=== PATIENT | male | born 1945 | race Caucasian/White ===

== ENCOUNTER 2022-01-21 15:06 | Outpatient (CLI) | payer MEDICARE, SELFPAY ==
--- NOTE | ~2022-01-21 | US_ITS ---
EXAMINATION: US art doppler w press LE BI DATE: 01/21/2022 16:46 INDICATION: Peripheral vascular disease. TECHNIQUE: Segmental pressures and plethysmographic and Doppler waveforms of the brachial and lower e xtremity arteries were obtained. COMPARISON: None. FINDINGS: Right and left brachial artery pressures of 131 mm Hg and 148 mm Hg, respectively, are concordant (no rmal difference <= 30 mmHg). The left high thigh pressure index is 1.40 (normal > 1.2). The right hig h thigh pressure index was unable to be obtained due to inability to occlude the vessel. The right ankle-brachial index (TANYA) is 1.15 (normal >= 0.9-1). The right great toe-brachial index (T BI) is 0.52 (normal >= 0.6-0.8). The right lower extremity segmental pressure gradients are normal (n ormal gradients <= 20-30 mmHg between adjacent levels on the same leg or the same levels on the two l egs). Arterial waveforms are triphasic with brisk systolic upstrokes throughout the arteries of the r ight lower limb. The left TANYA is 1.04. The left TBI is 0.60. The left lower extremity segmental pressure gradients are borderline increased between the left dorsalis pedis artery and both the left [id number] poplite al artery and the contralateral right dorsalis pedis artery. Arterial waveforms are triphasic at the left common femoral, superficial femoral and posterior tibial arteries and biphasic at the left popli teal and dorsalis pedis arteries with brisk systolic upstrokes throughout. IMPRESSION: 1. Mild arterial occlusive disease to the bilateral lower limbs with normal bilateral ABIs but mildly decreased right TBI and borderline decreased left TBI. Reviewed, dictated and finalized at location A. IMPRESSION: 1. Mild arterial occlusive disease to the bilateral lower limbs with normal ruby ateral ABIs but mildly decreased right TBI and borderline decreased left TBI.
== END 2022-01-21 15:07 | disposition home or self-care (01) ==
PROVIDERS: PCP Internal Medicine; Visit Provider Internal Medicine
DX: I73.9 Peripheral vascular disease, unspecified (principal)
CPT/HCPCS: 93923

== ENCOUNTER 2022-03-03 01:00 | Day surgery (SDC) | payer MEDICARE, SELFPAY ==
[2022-02-14 15:16] VITALS: BMI 35.2
[2022-03-03 11:43] VITALS: BP 176/79; PULSE 80; RESP 19; TEMP 36.4; O2SAT 97
--- NOTE | 2022-03-03 11:55 | PM.HPGS ---
History of Present Illness History of Present Illness Consent: Risks, benefits, and alternatives have been discussed and questions answered. Patient agrees to proceed with procedure. Chief complaint: neoplasm screening Narrative: Dionicio Shafer Jr. is a 76 year old male referred for colon cancer screening. Review of Systems Review of Systems: All systems reviewed & are unremarkable except as noted in HPI and below PMFSH Family History Family History Father Asthma Social History Social History Smoking packs per day: 2 Smoking cigarettes per day: 40.0 Years smoked: 50 Smoking pack-years: 100.00 Smoking status: Former smoker Tobacco type: cigarettes Alcohol intake: never Substance use type: does not use Living arrangements: alone Meds Home Medications and Allergies Home Medications Medication Instructions Recorded Confirmed Type albuterol sulfate 90 mcg/actuation 1 inh inhalation DAILY PRN 02/14/22 02/15/22 History aerosol inhaler Shortness Of Breath amlodipine 10 mg-benazepril 20 mg 1 cap PO DAILY 02/14/22 02/15/22 History capsule aspirin 81 mg tablet,delayed 81 mg PO DAILY 02/14/22 02/15/22 History release ezetimibe 10 mg tablet 10 mg PO DAILY 02/14/22 02/15/22 History glipizide 5 mg tablet 5 mg PO DAILY 02/14/22 02/15/22 History isosorbide mononitrate 20 mg tablet 20 mg PO DAILY 02/14/22 02/15/22 History lansoprazole 30 mg capsule,delayed 30 mg PO DAILY 02/14/22 02/15/22 History release metoprolol tartrate 50 mg tablet 50 mg PO DAILY 02/14/22 02/15/22 History montelukast 10 mg tablet 10 mg PO DAILY 02/14/22 02/15/22 History tamsulosin 0.4 mg capsule 0.4 mg PO DAILY 02/14/22 02/15/22 History umeclidinium 62.5 mcg-vilanterol 1 inh inhalation DAILY 02/14/22 02/15/22 History 25 mcg/actuation powdr for inhalation (Anoro Ellipta) Allergies Allergy/AdvReac Type Severity Reaction Status Date / Time No Known Allergies Allergy Verified 03/03/22 11:42 Vital Signs Vital Signs - 24 hr 03/03/22 11:43 Temperature 36.4 C L Pulse Rate 80 Respiratory Rate 19 Blood Pressure 176/79 H Pulse Oximetry 97 Oxygen Delivery Room Air Exam Resp: Auscultation: clear to auscultation bilaterally Cardio: Rate: regular rate Rhythm: regular rhythm GI: GI Palp: Yes Soft to palpation and No Tenderness to palpation present (GI) Assessment and Plan Assessment and plan (1) Colon cancer screening: Code(s): Z12.11 - Encounter for screening for malignant neoplasm of colon Status: Acute Assessment and Plan: Colonoscopy with possible biopsy or polypectomy or cautery or injection of substances.
[2022-03-03] MEDS: LACTATED RINGERS 1,000 ML 150 ML IV CONT (11:56)
--- NOTE | 2022-03-03 12:02 | P.PNAN_ITS ---
Anes - Initial Pre Proc Eval Procedure: Operation Date: 03/03/22 13:00 Proposed Procedures p Screening Colonoscopy - Yobany Mims MD Date/Time: 03/03/22 12:02 Surgeon: Yobany Mims MD Pre Op Diagnosis: neoplasm screening Patient Data Age: 76 Gender: M Height: 1.73 m Weight: 104.8 kg Last Vital Signs Temp 97.5 F L 03/03/22 11:43 Pulse 80 03/03/22 11:43 Resp 19 03/03/22 11:43 BP 176/79 H 03/03/22 11:43 Pulse Ox 97 03/03/22 11:43 O2 Del Method Room Air 03/03/22 11:43 Allergies Allergy/AdvReac Type Severity Reaction Status Date / Time No Known Allergies Allergy Verified 03/03/22 11:42 Home Medications Medication Instructions Recorded Confirmed Type albuterol sulfate 90 mcg/actuation 1 inh inhalation DAILY PRN 02/14/22 02/15/22 History aerosol inhaler Shortness Of Breath amlodipine 10 mg-benazepril 20 mg 1 cap PO DAILY 02/14/22 02/15/22 History capsule aspirin 81 mg tablet,delayed 81 mg PO DAILY 02/14/22 02/15/22 History release ezetimibe 10 mg tablet 10 mg PO DAILY 02/14/22 02/15/22 History glipizide 5 mg tablet 5 mg PO DAILY 02/14/22 02/15/22 History isosorbide mononitrate 20 mg tablet 20 mg PO DAILY 02/14/22 02/15/22 History lansoprazole 30 mg capsule,delayed 30 mg PO DAILY 02/14/22 02/15/22 History release metoprolol tartrate 50 mg tablet 50 mg PO DAILY 02/14/22 02/15/22 History montelukast 10 mg tablet 10 mg PO DAILY 02/14/22 02/15/22 History tamsulosin 0.4 mg capsule 0.4 mg PO DAILY 02/14/22 02/15/22 History umeclidinium 62.5 mcg-vilanterol 1 inh inhalation DAILY 02/14/22 02/15/22 History 25 mcg/actuation powdr for inhalation (Anoro Ellipta) Patient hx anesthesia problems: none Family hx anesthesia problems: none Results Review: All pre-operative results and documents have been reviewed as part of the pre- operative evaluation. PMFSH Family History Family History Father Asthma Social History Social History Smoking packs per day: 2 Smoking cigarettes per day: 40.0 Years smoked: 50 Smoking pack-years: 100.00 Smoking status: Former smoker Tobacco type: cigarettes Alcohol intake: never Substance use type: does not use Living arrangements: alone Anes - Eval Final PreProcedure Day of Procedure 03/03/22 12:02 Patient weight: obese Heart: regular rate and rhythm Lungs: clear to auscultation Airway: Mallampati scale class II Neurological: alert and oriented Last oral intake: >/= 8 hours ASA classification: III Emergent: no Anesthetic plan: proceed Anesthesia type and monitoring: general GIVS and standard monitoring Results Review: All pre-operative results and documents have been reviewed as part of the pre- operative evaluation. Informed Consent: The patient's anesthetic plan and its attendant risks and benefits were discussed with the patient/family/POA. Questions were solicited and answers provided to the satisfaction of the patient/family/POA.
[2022-03-03 13:00] LABS: Glucose Point of Care 105 mg/dl (65-105)
[2022-03-03 13:25] VITALS: BP 126/69; PULSE 76; RESP 22; O2SAT 90
[2022-03-03 13:35] VITALS: BP 151/88; PULSE 67; RESP 17; O2SAT 94
[2022-03-03 13:45] VITALS: BP 166/92; PULSE 61; RESP 14; O2SAT 94
== END 2022-03-03 14:05 | disposition home or self-care (01) ==
PROVIDERS: PCP Internal Medicine; Visit Provider Internal Medicine Gastroenterology
PROC: 0DJD8ZZ Inspection of Lower Intestinal Tract, Via Natural or Artificial Opening Endoscopic (ICD-10-PCS; CPT 45378; principal; 2022-03-03 13:00)
DX: Z12.11 Encounter for screening for malignant neoplasm of colon (principal); D12.4 Benign neoplasm of descending colon; K62.1 Rectal polyp; K57.30 Diverticulosis of large intestine without perforation or abscess without bleeding; Z79.51 Long term (current) use of inhaled steroids; Z79.82 Long term (current) use of aspirin; Z79.84 Long term (current) use of oral hypoglycemic drugs; Z87.891 Personal history of nicotine dependence; E66.9 Obesity, unspecified; Z68.35 Body mass index [BMI] 35.0-35.9, adult
CPT/HCPCS: 45380; 45385; 82948; 88305; J2704; J7120

== ENCOUNTER 2023-12-31 14:14 | Emergency (ER) | payer MEDICARE, SELFPAY ==
[2023-12-31] VITALS (25 sets, daily range): BP systolic 128–155; BP diastolic 72–101; PULSE 60–78; RESP 13–22; TEMP 36.4–36.5; O2SAT 94–99
--- NOTE | ~2023-12-31 | XR_ITS ---
XR chest 2V DATE: 12/31/2023 14:49 INDICATION: Chest pain, left facial and arm numbness. Shortness of breath. TECHNIQUE: PA and lateral views COMPARISON: None FINDINGS: Borderline heart size. Aortic calcification and mild tortuosity. No hilar or mediastinal en largement. There is infiltrate and/or atelectasis of the lingula; cardiophrenic fat pad or scarring might simula te this appearance. Recommend clinical correlation. The lungs otherwise appear clear. No pleural effusion or pulmonary vascular congestion or pneumothorax. Degenerative spurring of the thoracic spine. IMPRESSION: Lingular infiltrate or atelectasis are suspected. Alternatively, cardiophrenic fat pad or scarring can simulate this appearance. Reviewed, dictated and finalized at location J. IMPRESSION: Lingular infiltrate or atelectasis are suspected. Alternatively, ca rdiophrenic fat pad or scarring can simulate this appearance.
--- NOTE | 2023-12-31 14:15 | ECG_ITS ---
Test Date: 2023-12-31 14:22:25 Measurements Intervals [place] Rate: 74 P: 139 IA: 175 QRS: 139 QRSD: 90 T: 152 QT: 362 QTc: 402 Interpretive Statements SINUS RHYTHM WITH OCCASIONAL VENTRICULAR PREMATURE COMPLEXES ARM LEADS REVERSED [INVERTED P AND QRS IN I] LOW VOLTAGE ABNORMAL ECG Electronically Signed On 01-01-2024 10:54:54 CDT by Nghia Bernal M.D.
[2023-12-31 14:43] LABS: Basophils Absolute Auto 0.1 K/mm3 (0.0-0.1); Basophils Percent Auto 0.9 % (0.2-1.2); Eosinophils Absolute Auto 0.3 K/mm3 (0-0.3); Eosinophils Percent Auto 4.4 % (0-4.4); Hematocrit 44.1 % (42.0-52.0); Hemoglobin 13.7 g/dL (14.0-18.0); Immature Granulocyte Absolute 0.02 K/mm3 (0.00-0.031); Immature Granulocyte Percent A 0.3 % (0-0.5); Lymphocytes Absolute Auto 1.39 K/mm3 (0.9-3.2); Lymphocytes Percent Auto 20.9 % (18.3-44.2); Mean Corpuscular HGB Conc 31.1 g/dl (32-36); Mean Corpuscular Hemoglobin 26.7 pg (26-34); Mean Platelet Volume 10.1 fl (7.4-10.4); Monocytes Absolute Auto 0.5 K/mm3 (0.1-0.6); Monocytes Percent Auto 7.2 % (2.6-8.5); Neutrophils Absolute Auto 4.4 K/mm3 (1.3-6.7); Neutrophils Percent Auto 66.3 % (45.5-73.1); Platelet Count Result 228 k/mm3 (150-375); Red Blood Count 5.13 M/mm3 (4.6-6.20); Red Cell Distribution Width 14.4 % (11.5-14.5); White Blood Count 6.6 K/mm3 (4.5-10.0)
[2023-12-31 14:49] LABS: Alanine Aminotransferase 29 U/L (6-50); Albumin Level 4.5 g/dL (3.5-5.1); Alkaline Phosphatase 55 U/L (38-126); Anion Gap 10 mmol/L (4-12); Aspartate Amino Transferase 33 U/L (17-59); Bilirubin,Total 0.4 mg/dL (0.2-1.3); Blood Urea Nitrogen 23 mg/dL (9-20); Calcium 9.4 mg/dL (8.4-10.2); Carbon Dioxide 24 mmol/L (22-30); Chloride 102 mmol/L (98-107); Estimated CRCL calculation 52 ml/min; Estimated Glomerular Filt Rate 58; Glucose 126 mg/dL (65-110); Lipase 88 U/L (23-300); Potassium 4.9 mmol/L (3.4-5.0); Sodium 136 mmol/L (137-145)
[2023-12-31 14:50] LABS: Partial Thromboplastin Time 26.3 Seconds (22.3-36.8); Prothrombin Time 13.1 Seconds (11.1-14.7)
[2023-12-31 15:00] LABS: Troponin I < 0.012 ng/mL (0.000-0.034)
--- NOTE | 2023-12-31 16:54 | ED.GENADULT ---
HPI - General Adult General Chief complaint: Chest Pain Stated complaint: SOB, CP, left facial numbness Time Seen by Provider: 12/31/23 14:55 History of Present Illness HPI narrative: Patient is a 78-year-old gentleman who presents emergency department with chief complaint of chest discomfort the patient reports for the last several days been having a feeling of indigestion reports today woke up having the sensation reports that he is did not feel well afterwards. The patient states the symptoms have resolved now. Patient denies fever denies cough reports that currently is not having any symptoms Related Data Home Medications Medication Instructions Recorded Confirmed albuterol sulfate 90 mcg/actuation 1 inh inhalation DAILY PRN 02/14/22 02/15/22 aerosol inhaler Shortness Of Breath amlodipine 10 mg-benazepril 20 mg 1 cap PO DAILY 02/14/22 02/15/22 capsule aspirin 81 mg tablet,delayed 81 mg PO DAILY 02/14/22 02/15/22 release ezetimibe 10 mg tablet 10 mg PO DAILY 02/14/22 02/15/22 glipizide 5 mg tablet 5 mg PO DAILY 02/14/22 02/15/22 isosorbide mononitrate 20 mg tablet 20 mg PO DAILY 02/14/22 02/15/22 lansoprazole 30 mg capsule,delayed 30 mg PO DAILY 02/14/22 02/15/22 release metoprolol tartrate 50 mg tablet 50 mg PO DAILY 02/14/22 02/15/22 montelukast 10 mg tablet 10 mg PO DAILY 02/14/22 02/15/22 tamsulosin 0.4 mg capsule 0.4 mg PO DAILY 02/14/22 02/15/22 umeclidinium 62.5 mcg-vilanterol 1 inh inhalation DAILY 02/14/22 02/15/22 25 mcg/actuation powdr for inhalation (Anoro Ellipta) Allergies Allergy/AdvReac Type Severity Reaction Status Date / Time No Known Allergies Allergy Verified 03/03/22 11:42 Review of Systems Review of Systems: A 10 system review of systems was completed on the patient and is negative except for what is stated in the HPI. Nursing and ancillary documentation was reviewed. PMFSH Family History Family History Father Asthma Social History Social History Smoking packs per day: 2 Smoking cigarettes per day: 40.0 Years smoked: 50 Smoking pack-years: 100.00 Smoking status: Former smoker Tobacco type: cigarettes Alcohol intake: never Substance use type: does not use Living arrangements: alone Exam Narrative: GENERAL: Well-appearing, well-nourished, and in no acute distress. HEAD: Normocephalic, atraumatic. EYES: PERRLA and EOMI. ENT: Nares clear, no rhinorrhea or epistaxis. Mucous membranes moist. NECK: Supple. CHEST: Clear to auscultation. No respiratory distress. HEART: Regular rate and rhythm. No murmur heard. Normal peripheral pulses. ABDOMEN: Soft, nontender, nondistended, normal active bowel sounds. EXTREMITIES: Normal range of motion. No edema. SKIN: Warm, dry, no rash. NEURO: No focal deficits. Alert and oriented x3. Moves all extremities equally no facial droop PSYCH: Normal mood and affect. Course Vital Signs Vital signs: Vital Signs Temperature 36.5 C 12/31/23 14:27 Pulse Rate 78 12/31/23 14:27 Respiratory Rate 17 12/31/23 14:27 Blood Pressure 146/101 H 12/31/23 14:27 Pulse Oximetry 97 12/31/23 14:27 Oxygen Delivery Room Air 12/31/23 14:27 Temperature 36.4 C 12/31/23 15:04 Pulse Rate 67 12/31/23 18:04 Respiratory Rate 17 12/31/23 18:04 Blood Pressure 151/86 H 12/31/23 18:04 Pulse Oximetry 98 12/31/23 18:04 Oxygen Delivery Room Air 12/31/23 15:04 Medical Decision Making [facility] Narrative Medical decision making narrative: Differential diagnosis includes gastroesophageal reflux disease, ACS, unstable angina, atypical chest pain EKG showed sinus rhythm with occasional PVCs, no ST elevation or ST depression Laboratory studies were obtained showed a normal CBC normal CMP troponin was 0 hour and 3 hour. Chest x-ray showed a lingular atelectasis versus infi
--- NOTE | 2023-12-31 17:23 | ECG_ITS ---
Test Date: 2023-12-31 17:29:40 Measurements Intervals [employer] Rate: 61 P: -54 ID: 163 QRS: 38 QRSD: 94 T: 29 QT: 404 QTc: 410 Interpretive Statements ECTOPIC ATRIAL RHYTHM ABNORMAL ECG Compared to ECG 12/31/2023 14:22:25 Ectopic atrial rhythm now present Sinus rhythm no longer present Ventricular premature complex(es) no longer present Electronically Signed On 01-01-2024 10:55:51 CDT by Nghia Bernal M.D.
[2023-12-31 17:39] LABS: Troponin I < 0.012 ng/mL (0.000-0.034)
== END 2023-12-31 18:20 | disposition home or self-care (01) ==
PROVIDERS: Emergency Medicine; Emergency Provider Emergency Medicine; PCP Internal Medicine
DX: R07.89 Other chest pain (principal); J44.9 Chronic obstructive pulmonary disease, unspecified; E11.9 Type 2 diabetes mellitus without complications; Z87.891 Personal history of nicotine dependence; Z79.82 Long term (current) use of aspirin; Z79.84 Long term (current) use of oral hypoglycemic drugs; I49.3 Ventricular premature depolarization
CPT/HCPCS: 36415; 71046; 80053; 83690; 84484; 85025; 85610; 85730; 93005; 99284

== ENCOUNTER 2024-12-25 11:31 | Outpatient (CLI) | payer MEDICARE, SELFPAY ==
--- NOTE | ~2024-12-25 | XR_ITS ---
EXAMINATION: XR chest 2V 12/25/2024 11:48 INDICATION: Productive cough for 2 weeks PROCEDURE: 2 view chest COMPARISON: 12/31/2023 FINDINGS: There is right upper lobe pneumonia. The cardiomediastinal silhouette is within normal limi ts. There are no pleural effusions. There is no pneumothorax suspected. IMPRESSION: 1: Right upper lobe pneumonia. Reviewed, dictated and finalized at location A.
--- OUTSIDE RECORDS SUMMARY | 2024-12-25 11:36 | XMS_ITS | Clinical Summary ---
Author Organization [facility] Address [facility] [place] [address] Care Team Providers Care Tractor Mechanic Name Role Phone Gabriele Hills MD Primary Care Provider Social History Tobacco Use Types Packs/Day Years Used Date Smoking Tobacco: Never Assessed Sex and Gender Information Value Date Recorded Sex Assigned at Not on file Legal Sex Male 10:09 AM CDT Gender Identity Not on file Sexual Orientation Not on file Plan of Treatment Health Maintenance Due Date Last Done Comments DTaP, Tdap and Td Vaccines ( 1 - Tdap) 10/22/1963 Pneumococcal Vaccine: 50+ Ye ars (1 of 1 - PCV) 1994 Zoster Vaccines (1 of 2) 1994 Annual Medicare Wellness Visit 2009 RSV Immunization or 60+ Years (1 - 1-dose 75+ series) 10/22/2019 COVID-19 Vaccine (2023-2 5 season) 2024 Meningococcal B Vaccine Aged Out No l onger eligible based on patient's age to complete this topic Meningococcal Vaccine Aged Out No maximo elmer eligible based on patient's age to complete this topic RSV Immunizations Under 20 Months Aged Out No longer eligible based on patient's age to complete this topic Insurance [facility] Care Teams Tractor Mechanic Relationship Specialty Start Date End Date Gabriele Hills MD [address] [place] [address] PCP - General INTERNAL MEDICINE 11/08/21
--- OUTSIDE RECORDS SUMMARY | 2024-12-25 11:36 | XMS_ITS | Clinical Summary ---
Author Organization [facility] Address [address] [place] [address] Phone Care Team Providers Care Tile Applicator Name Role Phone Aj Douglas MD Primary Care Provider [phone] Allergies No known active allergies Medications tamsulosin (FLOMAX) 0.4 mg capsule Take 0.4 mg by mouth daily. Active ropivacaine, PF, (NAROPIN) 5 mg/mL (0.5 %) Solution 3 mg. Active nitroglycerin (NITROSTAT) 0.4 mg Tablet, Sublingual Place 0.4 mg under tongue 1 time daily as needed. For chest pain Active montelukast (SINGULAIR) 10 mg tablet Take 10 mg by mouth daily. Active metoprolol tartrate (LOPRESSOR) 50 mg tablet Take 50 mg by mouth daily. Active lansoprazole (PREVACID) 30 mg Capsule, Delayed Release(E.C.) Take 30 mg by mouth daily. Active Accu-Chek Fastclix Lancet Drum USE TWICE DAILY DIRECTED 2 Active isosorbide mononitrate (ISMO) 20 mg tablet Take 20 mg by mouth daily. Active glipiZIDE (GLUCOTROL) 5 mg tablet Take 5 mg by mouth daily. Active fluticasone propionate (FLONASE) 50 mcg/spray [place], Suspension nasal inhaler fluticasone propionate 50 mcg/actuation nasal spray,suspensio n Active ezetimibe (ZETIA) 10 mg tablet Take 10 mg by mouth daily. Active Accu-Chek Guide Me Glucose Mtr 2 times daily. 2 Active Accu-Chek Guide test strips Strip 2 times daily. 2 Active aspirin (ECOTRIN EC) 81 mg Tablet, Delayed Release (E.C.) Take 81 mg by mouth daily. Active amLODIPine-benaz epril (LOTREL) 10-40 mg capsule Take 1 Capsule by mouth daily. Active albuterol sulfate 90 mcg/Actuation inhaler Take 1 Puff by inhalation 3 times daily after meals. For SOB Active apixaban (Eliquis) 5 mg tablet TAKE 1 TABLET BY MOUTH TWICE A DAY 60 Tablet 3 Active fluticasone-umec lidinium-vilante rol (Trelegy Ellipta) 100-62.5-25 mcg Disk with Device INHALE 1 PUFF DAILY RINSE MOUTH WEL AFTER USE 60 Each 11 4 Active Active Problems No known active problems Encounters Date Type Department Care Team Description 12/18/2024 External Device Data [facility]STRACTION Provider, Abstract 11/27/2024 External Device Data [facility]STRA[facility] Provider, Abstract 11/26/2024 External Device Data [facility]CTION Provider, Abstract 10/29/2024 External Device Data [facility]STRACTION Provider, Abstract 10/03/2024 External Device Data [facility]STRACTION Provider, Abstract 10/02/2024 External Device Data [facility]STRACTION Provider, Abstract 10/01/2024 External Device Data [facility]STRACTION Provider, Abstract from Last 3 Months Social History Tobacco Use Types Packs/Day Years Used Date Smoking Tobacco: Former Cigarettes Q uit: 2017 Smokeless Tobacco: Never Tobacco Cessation:Counseling Given: Not Answered Sex and Gender Information Value Date Recorded Sex Assigned at Not on file Legal Sex Male 11:03 PM CDT Gender Identity Not on file Sexual Orientation Not on file Last Filed Vital Signs Vital Sign Reading Time Taken Comments Blood Pressure 136/84 04/03/2024 1:08 PM DOCK BOSS Pulse 62 04/03/2024 1:08 PM DOCK BOSS Temperature - - Respiratory Rate - - Oxygen Saturation 93% 04/03/2024 1:08 PM DOCK BOSS Inhaled Oxygen Concentration - - Weight 106.2 kg (234 lb 3.2 oz) 04/03/2024 1:08 PM DOCK BOSS Height 172.7 cm (5' 8) 04/03/2024 1:08 PM DOCK BOSS Body Mass Index 35.61 04/03/2024 1:08 PM DOCK BOSS Plan of Treatment Upcoming Encounters Date Type Department Care Team (Late st Contact Info) Description 04/03/2025 1:45 PM DOCK BOSS Office Visit [facility] Pulmonology [facility] [address] [facility] [address] [place] [address] Arcadio Mccallum MD [address] [facility] [address] [place] [address] Health Maintenance Due Date Last Done Comments DIABETES ANNUAL FOOT EXAM 1962 DIABETES ANNUAL RETINAL EXAM 1962 DIABETES MICROALBUMIN ANNUAL SCREEN 1962 LDL CHOLESTEROL ANNUAL 1962 DTAP/TDAP/TD VACCINES (1 - Tdap) 10/22/1963 PNEUMOCOCCAL VACCINE 50+ YEARS (1 of 2 - PCV) 10/21/18 64 ZOSTER VACCINE (1 of 2) 1994 RSV VACCINE (60+ or ) (1 - 1-dose 75+ series) 10/22/2019 DIABETES HBA1C Q 6 MONTHS 05/03/2022 11/01/2021 INFLUENZA VACCINE (#1) 2024 Insurance [employer] O MCR Care Teams Tile Applicator Relationship Specialty Start Date End Date Aj Douglas MD [address] [facility] [address] [place] [id number] PCP - General Internal Medicine 06/10/22
--- OUTSIDE RECORDS SUMMARY | 2024-12-25 11:36 | XMS_ITS | Continuity of Care Document ---
Author Organization [facility] Address [address] [place] [address] Phone Care Team Providers Care Evidence Custodian Name Role Phone Bishop Calderon MD Unavailable [...] Encounter Office/outpat ient visit,est, low [facility], [address], [id number], [place] [phone] [facility] JOINT PAIN-HANDJOIN T PAIN-HANDHAND INJURY NOS 4 Yumiko Alas. [address] [facility] [address], [place], [place], [id number] , [place]. tel: [phone] Office/outpat ient visit,est, mod [facility], [address] [address], [place], [place], [id number], [place] [phone] [facility] HAND INJURY NOS 4 Yumiko Alas. [address] [address], [place], [place], [id number] , [place]. tel: [phone] Office consultation, moderate [facility] [address] [facility], [address], [id number], [place] tel:[phone] [facility] Acute Pain Due To TraumaJOINT PAIN-HANDLOC PRIM OSTEOARTH-HECTOR DHAND INJURY NOS 4 Yumiko Alas. [address] [address], [place], [place], [id number] , [place]. tel: [phone] Family History Family Member Type Diagnosis Age [...]
--- OUTSIDE RECORDS SUMMARY | 2024-12-25 11:36 | XMS_ITS | Encounter Summary ---
Author Organization [facility] Address [address] [place] [address] Care Team Providers Care Mainspring Strip Gauger Name Role Phone Mary Croft GULSHAN-ROTOFORMER BACKTENDER Unavailable Encounter Details Date Type Department Care Team (Late st Contact Info) Description 07/16/2024 Lab Requisition [facility] - DermPath Lab [address] [facility], [facility] [place] [address] Mary Ann Valero MD [address] [facility] [address] [place] [address] Social History Tobacco Use Types Packs/Day Years Used Date Smoking Tobacco: Never Assessed Sex and Gender Information Value Date Recorded Sex Assigned at Not on file Legal Sex Male 11:17 AM CDT Gender Identity Not on file Sexual Orientation Not on file documented as of this encounter Plan of Treatment Not on file documented as of this encounter Procedures Procedure Name Priority Date/Time Associated Diagnosis Comments DERMATOPATHOLOGY Routine 07/16/2024 11:0 5 AM HAT CLEANER documented in this encounter Results * DERMATOPATHOLOGY (07/16/2024 11:05 AM HAT CLEANER) Case Report Dermatopathology Report Case: [id number] Authorizing Provider: Mary Ann Valero MD Collected: 07/16/2024 11:05 AM Ordering Location: [facility] - Received: 07/17/2024 06:41 AM DermPath Lab Pathologist: Nyla Croft MD Specimen: Skin, left hand 2:19 PM HAT CLEANER DERMATOPATHOLOGY LABORATORY Final Diagnosis Specimen A. SKIN, left hand: HYPERPLASTIC (HYPERTROPHIC) ACTINIC KERATOSIS, LICHENOID (L57.0) (see microscopic description) 2:19 PM HAT CLEANER DERMATOPATHOLOGY LABORATORY at 1419 HAT CLEANER Clinical History R/O SCC; Non-Healing 2:19 PM [facility] DERMATOPATHOLOGY LABORATORY Gross Description Specimen A: Received is one formalin filled container labeled with the patient's name and designated left hand. The specimen consists of a shave biopsy measuring 6x6x1 mm. Jar 0. 2:19 PM [facility] DERMATOPATHOLOGY LABORATORY Microscopic Description Specimen A. SKIN, left hand: There is hyperkeratosis alternating with parakeratosis. There is epidermal hyperplasia with disorderly maturation of keratinocytes with nuclear pleomorphism confined to the lower half of the epidermis. The dermis shows a band-like, chronic inflammatory infiltrate with occasional apoptotic keratinocytes and some basal vacuolar alteration. 2:19 PM [facility] DERMATOPATHOLOGY LABORATORY Disclaimer An external and internal positive and negative controls are appropriate for the histochemical, immunohistochemical and immunofluorescence stain(s) in this case (if any), except where stated explicitly. The performance characteristics of the stain(s) cited in this report were developed and its performance characteristic determined by the Dermatopathology Laboratory at [facility], directed by Dr. Misa Ospina. These tests need not be, and therefore are not, approved by the [place] Food and Drug Administration. The tests are used for clinical purposes. Billing Codes Specimen Charges Stain Charges 42722 1 2:19 PM [facility] DERMATOPATHOLOGY LABORATORY Embedded Images 2:19 PM [facility] DERMATOPATHOLOGY LABORATORY Pathology/Cytolo gy TISSUE SPECIMEN FROM SKIN / Unknown 07/16/2024 11:05 AM HAT CLEANER 07/17/2024 6:41 AM [facility] Mary Ann Valero MD LAB - PATHOLOGY/CYTOLOGY OR DERABLES Final Result DERMATOPATHOLOGY LABORATORY [facility] - Department of Dermatology [address] [place] [address], [facility] [[email or web address]] [phone] documented in this encounter Visit Diagnoses Not on filedocumented in this encounter Care Teams Mainspring Strip Gauger Relationship Specialty Start Date End Date Mary Croft, SKIP PIT WORKER-ROTOFORMER BACKTENDER [address] [facility] [place] [address] PCP - Attributed-[facility] INDERJIT SHARMA P4P 09/12/24 11/29/24 documented as of this encounter
--- OUTSIDE RECORDS SUMMARY | 2024-12-25 11:36 | XMS_ITS | Clinical Summary ---
Author Organization [facility] Address [address] [place] [address] Care Team Providers Care Skiver Hand Name Role Phone Unavailable Primary Care Provider Unavailabl e Source Comments [facility] [employer],non-owned Affiliates and Associated Physician Practices is amultiple site organization consisting of ambulatory clinics and hospital sitesin [place], [place], [place] and [place]. This disclosure is being madepursuant to the Care Everywhere program and may not contain all information available regarding this patient. Last updated 18.[facility] [employer] Social History Tobacco Use Types Packs/Day Years Used Date Smoking Tobacco: Never Assessed Sex and Gender Information Value Date Recorded Sex Assigned at Not on file Legal Sex Male 11:17 AM CDT Gender Identity Not on file Sexual Orientation Not on file Plan of Treatment Health Maintenance Due Date Last Done Comments DTAP/TDAP/TD VACCINES (1 - Tdap) 10/22/1963 PNEUMOCOCCAL VACCINE 50+ (1 of 1 - PCV) 1994 ZOSTER VACCINE (1 of 2) 1994 Respiratory Syncytial Virus (RSV) Vaccine Pt: or over 60 yrs (1 - 1-dose 75+ series) 10/22/2019 COVID-19 VACCINE ( - 2023-2 5 season) 2024 DEPRESSION SCREENING 05/15/2024 MEDICARE AWV CALENDAR YEAR 2024 INFLUENZA VACCINE (#1) 2025 HEPATITIS B VACCINE Aged Out No longe r eligible based on patient's age to complete this topic HIB VACCINE Aged Out No longer eligi ble based on patient's age to complete this topic HPV VACCINE Aged Out No longer eligi ble based on patient's age to complete this topic MENINGOCOCCAL (Group B) VACC INE SHARED DECISION-MAKING Aged Out No longer eligibl e based on patient's age to complete this topic MENINGOCOCCAL GROUPS A/C/Y/W VACCINE Aged Out No longer eligible b ased on patient's age to complete this topic Insurance [facility] MANAGED MEDICARE ADV
== END 2024-12-25 11:32 | disposition home or self-care (01) ==
PROVIDERS: PCP Internal Medicine
DX: R05.8 Other specified cough (principal)
CPT/HCPCS: 71046

== ENCOUNTER 2025-01-09 13:31 | Outpatient (CLI) | payer MEDICARE, SELFPAY ==
--- OUTSIDE RECORDS SUMMARY | 2013-07-09 06:15 | XMS_ITS | Continuity of Care Document ---
Author Organization [facility] Address [address] [place] [address] Phone Care Team Providers Care Hand I Tube Bender Name Role Phone Bishop Calderon MD Unavailable Unavailable Allergies, Adverse Reactions, Alerts Substance Reaction Status Criticality No Known allergies Medications Medication Instructions Dosage Effective Dates (start - stop) Status Comments Mobic 15 mg tablet take 1 tablet by oral route every day - No Longer Active Procedures Procedure Date Office/outpatient visit,bayron ramirez 2013 Supplemental Report Supplemental Report Office/outpatient visit,est, mod 2013 X-ray exam hand, 3+ views Office consultation, moderate 4 Wrist/Thumb Spica Splint, No Joints Advance Directives Directive Yes / No Effective Date File Name Resuscitation Not Answered N/A N/A Life Support Not Answered N/A N/A Intubation Not Answered N/A N/A Antibiotics Not Answered N/A N/A IV Fluid Support Not Answered N/A N/A Tube Feed Not Answered N/A N/A Other Directive N/A N/A WARNING:The information contained in this section is historical and is provided for information only and does not constitute a legal document or any assurance that the information is still accurate. Please verify the information with the ni of the legal document before using it for clinical purposes. Encounters Encounter Description Practice Location Reason(s) For Visit Diagnoses Date Provider Providers Copied on Encounter Office/outpat ient visit,est, low [facility], [address], [id number], [place] [phone] [facility] JOINT PAIN-HANDJOIN T PAIN-HANDHAND INJURY NOS 4 Yumiko Alas. [address] [facility], [address] [address], [place], [place], [id number] , [place]. tel: [phone] Office/outpat ient visit,est, mod [facility], [address] [address], [place], [place], [id number], [place] [phone] [facility] HAND INJURY NOS 4 Yumiko Alas. [address] [address], [place], [place], [id number] , [place]. tel: [phone] Office consultation, moderate [facility], [address], [id number], [place] tel:[phone] [facility] Acute Pain Due To TraumaJOINT PAIN-HANDLOC PRIM OSTEOARTH-HECTOR DHAND INJURY NOS 4 Yumiko Alas. [address] [address], [place], [place], [id number] , [place]. tel: [phone] Family History Family Member Type Diagnosis Age At Onset No Information Immunizations Vaccine Date Status Comments Flu (split) (3 yrs or older) administered Source: New Immunization Record Payers Payer name Insurance type Covered alliance party ID Authoriza tion(s) No Information Social History Type Description Quantity Date Captured Comments Alcohol Use Details Unknown Caffeine Use Details Unknown Tobacco Use Status No Information Smoking Status Current every day smoker 2013 Sex Male Chief Complaint And Reason For Visit No Information Reason For Referral Reason For Referral No Information Plan Of Treatment Date Type Action Status Goal Tobacco cessation counseling completed Goal Tobacco cessation counseling completed Goal Tobacco cessation counseling completed Referral Ordered: X-ray exam hand, 3+ views Right ordered History Of Present Illness Encounter Date Complaint History Of Prese nt Illness No Information Functional Status Date Functional Assessmen t No Information Instructions Date Instruction Additional Infor mation No Information Assessments Type Assessment Date No Information Patient Care Teams Name Effective Dates (start - stop) Status Members No Information
--- NOTE | ~2025-01-09 | US_ITS ---
US art doppler w press LE BI INDICATION: Peripheral vascular disease TECHNIQUE: Segmental pressures and plethysmographic and Doppler waveforms of the brachial and lower extremity arteries were obtained. COMPARISON: None. FINDINGS: Right and left brachial artery pressures of 133 mm Hg and 125 mm Hg, respectively, are concordant (normal difference <= 30 mmHg). There is biphasic flow bilaterally in the lower extremity arteries. The right ankle-brachial index (TANYA) is 1.15 (normal >= 0.9-1.0). The right great toe-brachial index (TBI) is 0.76 (normal >= 0.60). The left TANYA is 1.02. The left TBI is 0.8. IMPRESSION: 1. Normal lower extremity arterial Doppler. Reviewed, dictated and finalized at location O.
--- OUTSIDE RECORDS SUMMARY | 2025-01-09 13:36 | XMS_ITS | Encounter Summary ---
Author Organization [facility] Address [address] [place] [address] Care Team Providers Care Metal Fabricator Helper Name Role Phone Mary Croft GRINDER-DISBURSING AGENT Unavailable [phone] Cynthia Marie GRINDER-DISBURSING AGENT Unavailable [phone] Encounter Details Date Type Department Care Team (Late st Contact Info) Description 07/16/2024 Lab Requisition [facility] - DermPath Lab [address] [facility] [place] [address] Mary Ann Valero MD [address] [facility] [address] [place] [address] Social History Tobacco Use Types Packs/Day Years [...] Comments DERMATOPATHOLOGY Routine 07/16/2024 11:0 5 AM ESCALATOR SERVICE MECHANIC documented in this encounter Results * DERMATOPATHOLOGY (07/16/2024 11:05 AM ESCALATOR SERVICE MECHANIC) Case Report Dermatopathology Report Case: [id number] Authorizing Provider: Mary Ann Valero MD Collected: 07/16/2024 11:05 AM Ordering Location: [facility] Physician [facility] - Received: 07/17/2024 06:41 AM DermPath Lab Pathologist: Nyla Croft MD Specimen: Skin, left hand 2:19 PM ESCALATOR SERVICE MECHANIC DERMATOPATHOLOGY LABORATORY Final Diagnosis Specimen A. SKIN, left hand: HYPERPLASTIC (HYPERTROPHIC) ACTINIC KERATOSIS, LICHENOID (L57.0) (see microscopic description) 2:19 PM [facility] DERMATOPATHOLOGY LABORATORY at 1419 ESCALATOR SERVICE MECHANIC Clinical History R/O SCC; Non-Healing 2:19 PM [facility] DERMATOPATHOLOGY LABORATORY Gross Description Specimen A: Received is one formalin filled container labeled with the patient's name and designated left hand. The specimen consists of a shave biopsy measuring 6x6x1 mm. Jar 0. 2:19 PM [facility] DERMATOPATHOLOGY LABORATORY Microscopic Description Specimen A. SKIN, left hand: There is hyperkeratosis alternating with parakeratosis. There is epidermal hyperplasia with disorderly maturation of keratinocytes with nuclear pleomorphism confined to the lower half of the epidermis. The dermis shows a band-like, chronic inflammatory infiltrate with occasional apoptotic keratinocytes and some basal vacuolar alteration. 2:19 PM [facility] DERMATOPATHOLOGY LABORATORY Disclaimer An external and internal positive and negative controls are appropriate for the histochemical, immunohistochemical and immunofluorescence stain(s) in this case (if any), except where stated explicitly. The performance characteristics of the stain(s) cited in this report were developed and its performance characteristic determined by the Dermatopathology Laboratory at [facility], directed by Dr. Misa Ospina. These tests need not be, and therefore are not, approved by the [place] Food and Drug Administration. The tests are used for clinical purposes. Billing Codes Specimen Charges Stain Charges 36941 1 2:19 PM [facility] DERMATOPATHOLOGY LABORATORY Embedded Images 2:19 PM [facility] DERMATOPATHOLOGY LABORATORY Pathology/Cytolo gy TISSUE SPECIMEN FROM SKIN / Unknown 07/16/2024 11:05 AM ESCALATOR SERVICE MECHANIC 07/17/2024 6:41 AM [facility] us Mary Ann Valero MD LAB - PATHOLOGY/CYTOLOGY OR DERABLES Final Result DERMATOPATHOLOGY LABORATORY [facility] - Department of Dermatology [address] [place] [address], [facility] [phone] documented in this encounter Visit Diagnoses Not on filedocumented in this encounter Care Teams Metal Fabricator Helper Relationship Specialty Start Date End Date Mary Croft, GULSHAN-DISBURSING AGENT [address] [place] [address] PCP - Attributed-[facility] P4 09/12/24 11/29/24 Cynthia Marie APRN-CINDY [address] [place] [address] PCP - Attributed-[facility] INDERJIT 12/13/24 documented as of this encounter
--- OUTSIDE RECORDS SUMMARY | 2025-01-09 13:36 | XMS_ITS | Clinical Summary ---
Author Organization [facility] Address [address] [place] [address] Phone Care Team Providers Care Keyboarding Teacher Name Role Phone Aj Douglas MD Primary Care Provider [phone] Allergies No known active allergies Medications tamsulosin [...] daily. Active fluticasone propionate (FLONASE) 50 mcg/spray [place], Suspension nasal inhaler fluticasone propionate 50 mcg/actuation [...] Encounters Date Type Department Care Team Description 12/31/2024 External Device Data STL ABSTRACTION Provider, Abstract 12/31/2024 External Device Data [facility] ABSTRACTION Provider, Abstract 12/18/2024 External Device Data [facility] ABSTRACTION Provider, [...] Comments Blood Pressure 136/84 04/03/2024 1:08 PM GATE CLERK Pulse 62 04/03/2024 1:08 PM GATE CLERK Temperature - - Respiratory Rate - - Oxygen Saturation 93% 04/03/2024 1:08 PM GATE CLERK Inhaled Oxygen Concentration - - Weight 106.2 kg (234 lb 3.2 oz) 04/03/2024 1:08 PM GATE CLERK Height 172.7 cm (5' 8) 04/03/2024 1:08 PM GATE CLERK Body Mass Index 35.61 04/03/2024 1:08 PM GATE CLERK Plan of Treatment Upcoming Encounters Date Type Department Care Team (Late st Contact Info) Description 04/03/2025 1:45 PM GATE CLERK Office Visit [facility] Pulmonology [facility] [address] [facility] [address] [place] [address] Arcadio Mccallum MD [address] [facility] [address] [place] [address] Health Maintenance Due Date Last [...] 05/03/2022 11/01/2021 INFLUENZA VACCINE (#1) 2024 Insurance AENA O MCR Care Teams Keyboarding Teacher Relationship Specialty Start Date End Date Aj Douglas MD [address] [facility] [address] [place] [address] PCP - General Internal Medicine 06/10/22
--- OUTSIDE RECORDS SUMMARY | 2025-01-09 13:36 | XMS_ITS | Clinical Summary ---
Author Organization [facility] Address [facility] [place] [address] Care Team Providers Care Trucker Name Role Phone Gabriele Hills MD Primary Care Provider [phone] Social History Tobacco Use Types Packs/Day Years [...] patient's age to complete this topic Insurance [place] [address] Care Teams Trucker Relationship Specialty Start Date End Date Gabriele Hills MD [address] [place] [address] PCP - General INTERNAL MEDICINE 11/08/21
--- OUTSIDE RECORDS SUMMARY | 2025-01-09 13:36 | XMS_ITS | Clinical Summary ---
Author Organization [facility] Address [address] [facility] [place] [address] Care Team Providers Care Customer Service Driver Name Role Phone Cynthia Marie COMMODITY BUYER-GUIDE DOG MOBILITY INSTRUCTOR Unavailable [phone] Source Comments [facility] [employer],non-owned Affiliates and Associated Physician Practices is amultiple site organization consisting of ambulatory clinics and hospital sitesin [place], [place], [place] and [place]. This disclosure is being madepursuant to the Care Everywhere program and may not contain all information available regarding this patient. Last updated 18.[facility] [employer] Social History Tobacco Use Types Packs/Day Years [...] patient's age to complete this topic Insurance [facility] MANAGED MEDICARE ADV Care Teams Customer Service Driver Relationship Specialty Start Date End Date Cynthia Marie APRN-CINDY [address] [place] [phone] PCP - Attributed-[facility] INDERJIT 12/13/24
== END 2025-01-09 13:32 | disposition home or self-care (01) ==
PROVIDERS: PCP Internal Medicine; Visit Provider Internal Medicine
DX: I73.9 Peripheral vascular disease, unspecified (principal)
CPT/HCPCS: 93923